=== PATIENT | female | born 1945 | race Caucasian/White ===

== ENCOUNTER → 2018-06-30 | Outpatient (CLI) | payer MEDICARE ==
[~2018-06-30] MED LIST: ASPI81CH; ATEN50 PO; FISH OIL 1,0001 EACH; LEVSOD75 PO; Lovastatin20 MG PO; Naproxen250 MG PO
== END | disposition home or self-care (01) ==
LOC: LAB 06:00 → LAB SHORT 06:00
DX: R19.7 Diarrhea, unspecified (principal)
CPT/HCPCS: 87493